=== PATIENT | female | born 1975 | race Caucasian/White ===

== ENCOUNTER 2017-06-20 20:03 | Emergency (ER) | payer MEDICAID ==
[~2017-06-20] VITALS: Ht 165.1 cm; Wt 100.0 kg
[2017-06-20 20:16] LABS: GLUCOSE,POINT OF CARE 211 MG/DL (70-110)
[2017-06-20] MEDS ORDERED: DOXY100C PO (20:16)
[2017-06-20] MEDS ORDERED: METF500T4 PO (20:16)
[2017-06-20] MEDS ORDERED: ONDANSETRON HCL 4 MG TABLET PO ONE (20:45)
[2017-06-20 20:48] LABS: GLUCOSE,POINT OF CARE 259 MG/DL (70-110)
[2017-06-20 20:52] LABS: EOSINOPHILS % (AUTO) 0.7 % (1.0-6.0); HEMATOCRIT 41.6 % (36-46); HEMOGLOBIN 13.6 g/dL (12.0-16.0); LYMPHOCYTES # (AUTO) 2.6 K/uL (1.0-4.8); LYMPHOCYTES % (AUTO) 26.4 % (22.0-44.0); MEAN CORPUSCULAR HEMOGLOBIN 23.7 pg (26.0-34.0); MEAN CORPUSCULAR HGB CONC 32.6 G/dL (31.0-37.0); MEAN CORPUSCULAR VOLUME 73 fL (80-100); MONOCYTES # (AUTO) 0.7 K/uL (0.1-1.0); MONOCYTES % (AUTO) 6.7 % (2.0-9.0); NEUTROPHILS # (AUTO) 6.4 K/uL (1.8-7.7); NEUTROPHILS % (AUTO) 65.2 % (40.0-70.0); PLATELET COUNT (AUTO) 267 K/uL (150-450); RBC MORPHOLOGY COMMENT ABNORMAL RBC MORPH; RED BLOOD CELL COUNT(AUTO) 5.72 MIL/uL (4.00-5.20); RED CELL DISTRIBUTION WIDTH 14.5 % (11.5-14.5); WHITE BLOOD COUNT (AUTO) 9.8 K/uL (4.5-11.0)
[2017-06-20 21:40] LABS: ANION GAP 10 mmol/L (8-16); CALCIUM, TOTAL 9.3 mg/dL (8.8-10.5); CARBON DIOXIDE 28 mmol/L (22-29); CHLORIDE 99 mmol/L (98-107); GLOMERULAR FILTR. RATE CALC > 60 mL/min (>60); POTASSIUM 3.6 mmol/L (3.5-5.1); SODIUM SERUM 137 mmol/L (136-145); UREA NITROGEN, BLOOD 13 mg/dL (7-18)
[2017-06-20 21:44] LABS: ALANINE AMINOTRANSFERASE 28 U/L (12-78); ALBUMIN 3.5 g/dL (3.4-5.0); ASPARTATE AMINOTRANSFERASE 22 U/L (15-37); BILIRUBIN,TOTAL 0.5 mg/dL (0.1-1.0); TOTAL PROTEIN, SERUM 7.7 g/dL (6.4-8.2)
[2017-06-20 22:07] VITALS: BP 121/81
== END 2017-06-20 22:10 | disposition home or self-care (01) ==
LOC: EMS 20:05
DX: R42 Dizziness and giddiness (principal); R11.0 Nausea; G80.9 Cerebral palsy, unspecified; Z88.2 Allergy status to sulfonamides; Z98.890 Other specified postprocedural states
CPT/HCPCS: 82948; 82962; 93005; 99285; Q0162

== ENCOUNTER 2017-06-23 08:16 | Emergency (ER) | payer MEDICAID ==
[~2017-06-23] VITALS: Ht 165.1 cm; Wt 98.6 kg
[~2017-06-23 08:16] MED LIST: DOXY100C PO; METF500T4 PO
[2017-06-23 08:32] LABS: GLUCOSE,POINT OF CARE 221 MG/DL (70-110)
[2017-06-23 09:53] VITALS: BP 128/83
== END 2017-06-23 10:10 | disposition home or self-care (01) ==
LOC: EMS 08:17
DX: Z48.00 Encounter for change or removal of nonsurgical wound dressing (principal); L03.311 Cellulitis of abdominal wall; Z88.0 Allergy status to penicillin; Z88.1 Allergy status to other antibiotic agents
CPT/HCPCS: 82962; 99283

== ENCOUNTER 2017-06-25 09:34 | Emergency (ER) | payer MEDICAID ==
[~2017-06-25] VITALS: Ht 165.1 cm; Wt 100.0 kg
[2017-06-25 09:47] LABS: GLUCOSE,POINT OF CARE 222 MG/DL (70-110)
[2017-06-25 10:20] VITALS: BP 134/82
[2017-06-25] MEDS ORDERED: BACITRACIN 0.9 GM PACKET OINTMENT TP ONE (10:30)
== END 2017-06-25 11:00 | disposition home or self-care (01) ==
LOC: EMS 09:35
DX: S20.91XA Abrasion of unspecified parts of thorax, initial encounter (principal); S30.811A Abrasion of abdominal wall, initial encounter; S31.000D Unspecified open wound of lower back and pelvis without penetration into retroperitoneum, subsequent encounter; Z88.0 Allergy status to penicillin; Z88.2 Allergy status to sulfonamides; X58.XXXA Exposure to other specified factors, initial encounter; Y93.89 Activity, other specified; Y92.89 Other specified places as the place of occurrence of the external cause; Y99.8 Other external cause status
CPT/HCPCS: 82962; 99283

== ENCOUNTER 2017-06-29 16:04 | Emergency (ER) | payer MEDICAID ==
[~2017-06-29] VITALS: Ht 165.1 cm; Wt 103.5 kg
[2017-06-29 17:20] LABS: BASOPHILS # (AUTO) 0.12 K/uL (0.00-0.20); BASOPHILS % (AUTO) 1.3 % (0.0-2.0); EOSINOPHILS # (AUTO) 0.07 K/uL (0.00-0.70); HEMATOCRIT 39.3 % (36-46); LYMPHOCYTES # (AUTO) 2.3 K/uL (1.0-4.8); LYMPHOCYTES % (AUTO) 26.4 % (22.0-44.0); MEAN CORPUSCULAR HGB CONC 33.1 G/dL (31.0-37.0); MEAN CORPUSCULAR VOLUME 72 fL (80-100); MONOCYTES # (AUTO) 0.5 K/uL (0.1-1.0); MONOCYTES % (AUTO) 6.2 % (2.0-9.0); NEUTROPHILS # (AUTO) 5.7 K/uL (1.8-7.7); NEUTROPHILS % (AUTO) 65.4 % (40.0-70.0); PLATELET COUNT (AUTO) 245 K/uL (150-450); RED BLOOD CELL COUNT(AUTO) 5.42 MIL/uL (4.00-5.20); RED CELL DISTRIBUTION WIDTH 14.5 % (11.5-14.5); WHITE BLOOD COUNT (AUTO) 8.8 K/uL (4.5-11.0)
[2017-06-29 17:28] LABS: ANION GAP 12 mmol/L (8-16); CARBON DIOXIDE 26 mmol/L (22-29); CHLORIDE 99 mmol/L (98-107); CREATININE 0.62 mg/dL (0.60-1.30); GLOMERULAR FILTR. RATE CALC > 60 mL/min (>60); POTASSIUM 3.8 mmol/L (3.5-5.1); PROTHROMBIN TIME 10.8 SEC (9.4-11.6); SODIUM SERUM 137 mmol/L (136-145); UREA NITROGEN, BLOOD 9 mg/dL (7-18)
[2017-06-29 17:34] LABS: ALANINE AMINOTRANSFERASE 19 U/L (12-78); ALBUMIN 3.5 g/dL (3.4-5.0); ASPARTATE AMINOTRANSFERASE 14 U/L (15-37); BILIRUBIN,TOTAL 0.4 mg/dL (0.1-1.0); CREATINE KINASE, TOTAL 38 U/L (26-192); TOTAL PROTEIN, SERUM 7.5 g/dL (6.4-8.2)
[2017-06-29 17:50] LABS: B-TYPE NATRIURETIC PEPTIDE 49 pg/mL (0-100)
[2017-06-29 18:18] VITALS: BP 103/68
[2017-06-29 19:05] LABS: APPEARANCE,URINE CLOUDY (CLEAR); GLUCOSE, URINE (UA) 500 mg/dL (NEGATIVE); KETONES,URINE NEGATIVE (NEGATIVE); LEUKOCYTE ESTERASE ,URINE MODERATE (NEGATIVE); OCCULT BLOOD,URINE NEGATIVE (NEGATIVE); PH,URINE 5.5 (5.0-8.0); PROTEIN,URINE NEGATIVE (NEGATIVE)
[2017-06-29 19:26] LABS: ADD UA MICROSCOPIC YES
[2017-06-29 19:33] LABS: SQUAMOUS EPITHELIAL CELL,UR Moderate /LPF (None Seen)
[2017-06-29 19:35] LABS: RBC,URINE 0-2 /HPF (0-2)
== END 2017-06-29 19:05 | disposition home or self-care (01) ==
LOC: EMS 16:05
DX: I10 Essential (primary) hypertension (principal); R60.0 Localized edema; M79.89 Other specified soft tissue disorders; Z88.2 Allergy status to sulfonamides; Z88.0 Allergy status to penicillin
CPT/HCPCS: 87086; 93005; 99285

== ENCOUNTER 2017-07-01 18:01 | Emergency (ER) | payer MEDICAID ==
[~2017-07-01] VITALS: Ht 165.1 cm; Wt 103.6 kg
[2017-07-01 18:17] LABS: GLUCOSE,POINT OF CARE 245 MG/DL (70-110)
[2017-07-01 20:20] VITALS: BP 111/74
== END 2017-07-01 20:32 | disposition home or self-care (01) ==
LOC: EMS 18:02
DX: S21.202D Unspecified open wound of left back wall of thorax without penetration into thoracic cavity, subsequent encounter (principal); Z48.00 Encounter for change or removal of nonsurgical wound dressing; Z88.0 Allergy status to penicillin; Z88.1 Allergy status to other antibiotic agents; X58.XXXD Exposure to other specified factors, subsequent encounter
CPT/HCPCS: 82962; 99283

== ENCOUNTER 2017-07-03 16:25 | Emergency (ER) | payer MEDICAID ==
[~2017-07-03] VITALS: Ht 160 cm; Wt 109.0 kg
[~2017-07-03 16:25] MED LIST changes: -DOXY100C PO
[2017-07-03] MEDS ORDERED: TERBINAFINE HCL 1% 30 GM CREAM TP ONE (17:45)
[2017-07-03 18:29] VITALS: BP 109/61
== END 2017-07-03 19:01 | disposition home or self-care (01) ==
LOC: EMS 16:27
DX: B36.9 Superficial mycosis, unspecified (principal); L30.4 Erythema intertrigo; Z88.0 Allergy status to penicillin; Z88.1 Allergy status to other antibiotic agents
CPT/HCPCS: 99283

== ENCOUNTER 2017-07-20 14:53 | Emergency (ER) | payer MEDICARE, MEDICAID ==
[~2017-07-20] VITALS: Ht 157.5 cm; Wt 86.4 kg
[2017-07-20 15:07] LABS: GLUCOSE,POINT OF CARE 263 MG/DL (70-110)
[2017-07-20 15:38] VITALS: BP 122/84
== END 2017-07-20 16:47 | disposition home or self-care (01) ==
LOC: EMS 14:59
DX: M25.512 Pain in left shoulder (principal); G80.9 Cerebral palsy, unspecified; Z88.0 Allergy status to penicillin; Z88.2 Allergy status to sulfonamides
CPT/HCPCS: 82962; 93005; 99283

== ENCOUNTER 2018-11-19 16:12 | Emergency (ER) | payer MEDICAID, MEDICARE ==
[~2018-11-19] VITALS: Ht 165.1 cm; Wt 100.0 kg
[~2018-11-19 16:12] MED LIST changes: +METF-960 PO; -METF500T4 PO
[2018-11-19 16:30] VITALS: BP 132/66
== END 2018-11-19 17:15 | disposition home or self-care (01) ==
LOC: EMS 16:16
DX: S60.911A Unspecified superficial injury of right wrist, initial encounter (principal); L08.9 Local infection of the skin and subcutaneous tissue, unspecified; X58.XXXA Exposure to other specified factors, initial encounter; Y93.89 Activity, other specified; Y92.89 Other specified places as the place of occurrence of the external cause; Y99.8 Other external cause status

== ENCOUNTER 2021-03-15 21:50 | Emergency (ER) | payer MEDICARE ==
[~2021-03-15] VITALS: Ht 165.1 cm; Wt 100.0 kg
[2021-03-15 23:43] LABS: BASOPHILS % (AUTO) 0.7 % (0.0-2.0); EOSINOPHILS % (AUTO) 0.9 % (1.0-6.0); HEMATOCRIT 38.9 % (36-46); HEMOGLOBIN 12.2 g/dL (12.0-16.0); LYMPHOCYTES # (AUTO) 2.3 K/uL (1.0-4.8); LYMPHOCYTES % (AUTO) 29.5 % (22.0-44.0); MEAN CORPUSCULAR HEMOGLOBIN 22.2 pg (26.0-34.0); MEAN CORPUSCULAR HGB CONC 31.5 G/dL (31.0-37.0); MEAN CORPUSCULAR VOLUME 70 fL (80-100); MONOCYTES # (AUTO) 0.5 K/uL (0.1-1.0); MONOCYTES % (AUTO) 7.1 % (2.0-9.0); NEUTROPHILS # (AUTO) 4.8 K/uL (1.8-7.7); NEUTROPHILS % (AUTO) 61.8 % (40.0-70.0); PLATELET COUNT (AUTO) 234 K/uL (150-450); RED BLOOD CELL COUNT(AUTO) 5.52 MIL/uL (4.00-5.20); RED CELL DISTRIBUTION WIDTH 15.4 % (11.5-14.5)
[2021-03-15 23:53] LABS: ANION GAP 11 mmol/L (8-16); CALCIUM, TOTAL 8.7 mg/dL (8.8-10.5); CARBON DIOXIDE 28 mmol/L (22-29); CHLORIDE 97 mmol/L (98-107); CREATININE 0.68 mg/dL (0.60-1.30); GLOMERULAR FILTR. RATE CALC > 60 mL/min (>60); GLUCOSE,RANDOM 339 mg/dL (70-110); POTASSIUM 3.4 mmol/L (3.5-5.1); SODIUM SERUM 136 mmol/L (136-145); UREA NITROGEN, BLOOD 12 mg/dL (7-18)
[2021-03-15 23:59] LABS: ALANINE AMINOTRANSFERASE 34 U/L (12-78); ALBUMIN 3.5 g/dL (3.4-5.0); ALKALINE PHOSPHATASE 125 U/L (46-116); ASPARTATE AMINOTRANSFERASE 26 U/L (15-37); BILIRUBIN,TOTAL 0.5 mg/dL (0.1-1.0); TOTAL PROTEIN, SERUM 7.7 g/dL (6.4-8.2)
[2021-03-16 00:02] LABS: LACTIC ACID 1.2 mmol/L (0.4-2.0)
[2021-03-16] MEDS ORDERED: MAGNESIUM OXIDE 400 MG TABLET PO ONE (00:45)
[2021-03-16] MEDS ORDERED: CALCIUM CARBONATE 500 MG TABLET PO ONE (00:45)
[2021-03-16] MEDS ORDERED: SODIUM CHLORIDE 0.9% 1,000 ML IV ONE (00:45)
[2021-03-16] MEDS ORDERED: POTASSIUM CHLORIDE 20 MEQ ER TABLET PO ONE (01:15)
[2021-03-16 02:15] LABS: APPEARANCE,URINE CLEAR (CLEAR); BILIRUBIN,URINE NEGATIVE (NEGATIVE); GLUCOSE, URINE (UA) 250 mg/dL (NEGATIVE); KETONES,URINE NEGATIVE (NEGATIVE); LEUKOCYTE ESTERASE ,URINE NEGATIVE (NEGATIVE); NITRATE,URINE NEGATIVE (NEGATIVE); OCCULT BLOOD,URINE TRACE (NEGATIVE); PH,URINE 6.5 (5.0-8.0); PROTEIN,URINE NEGATIVE (NEGATIVE); UROBILINOGEN,URINE 0.2 mg/dL (<=1.0)
[2021-03-16 02:19] LABS: BACTERIA,URINE Rare /HPF (None Seen); RBC,URINE 0-2 /HPF (0-2); WBC,URINE 0-2 /HPF (0-5)
[2021-03-16 03:27] LABS: GLUCOSE,POINT OF CARE 333 MG/DL (70-110)
[2021-03-16 03:30] VITALS: BP 118/61
== END 2021-03-16 04:47 | disposition home or self-care (01) ==
LOC: EMS 21:52
DX: R35.8 Other polyuria (principal); R73.9 Hyperglycemia, unspecified; Z88.0 Allergy status to penicillin
CPT/HCPCS: 36415; 80053; 81001; 82962; 83605; 83735; 84703; 85025; 96360; 99284; J7030; 82948